=== PATIENT | female | born 1990 | race Caucasian/White ===

== ENCOUNTER 2018-12-12 10:47 | Emergency (ER) | payer OTHER ==
--- NOTE | 2018-12-12 12:30 | ED Physician Documentation ---
History of Present Illness - Stated complaint Stated Complaint: FACIAL PX POST SURGERY - History obtained from History obtained from: Patient - History of Present Illness Timing: Other (Had sinus surgery 9 days ago. She was generally improving and everything went fine at her follow-up appointment except for slightly increased pain over what was expected but over the last 3 days pain especially in the right maxillary sinus is worsened with bloody and foul-smelling output there. No fevers.) Review of Systems Nose: reports: Congestion, Epistaxis, Sinus pressure / pain. denies: Rhinorrhea / runny nose Throat: denies: Sore throat PD PAST MEDICAL HISTORY - Present Medications Home Medications: Ambulatory Orders Medication Instructions Recorded Confirmed Amox/Clav 875/125 [Augmentin] 1 each PO Q12H #20 tablet 12/12/18 Norethindrone AC-Eth Estradiol 1 each PO 12/12/18 [Microgestin 21 1-20 Tablet] Oxycodone HCl/Acetaminophen 1 - 2 each PO Q6H PRN #20 tablet 12/12/18 [Percocet 5-325 mg Tablet] Zolpidem [Ambien] 5 mg PO HS 12/12/18 12/12/18 - Allergies Allergies/Adverse Reactions: Allergies Allergy/AdvReac Type Severity Reaction Status Date / Time No Known Drug Allergies Allergy Verified 12/12/18 11:02 PD ED PE NORMAL - Vitals Vital signs reviewed: Yes - General General: Alert and oriented X 3, No acute distress - HEENT HEENT: PERRL, EOMI, Pharynx benign, Other (There is no overt facial swelling. Extraocular movements are intact. There is tenderness over the right maxillary sinus. Near the ostial meatus behind the turbinates there is a clear clot that looks like it is probably blocking up the meatus.) - Neuro Neuro: Alert and oriented X 3, Normal speech Results - Vitals Vitals: Vital Signs - 24 hr 12/12/18 10:59 Temperature 36.2 C L Heart Rate 80 Respiratory 16 Rate Blood Pressure 128/72 O2 Saturation 100 Oxygen O2 Source Room air Departure - Departure Disposition: 01 Home, Self Care Clinical Impression: Sinusitis Qualifiers: Sinusitis location: maxillary Chronicity: acute Recurrence: recurrent Qualified Code(s): J01.01 - Acute recurrent maxillary sinusitis Condition: Good Record reviewed to determine appropriate education?: Yes Instructions: ED Sinusitis Abx Tx Prescriptions: Amox/Clav 875/125 [Augmentin] 1 each PO Q12H #20 tablet Oxycodone HCl/Acetaminophen [Percocet 5-325 mg Tablet] 1 - 2 each PO Q6H PRN #20 tablet PRN Reason: pain Comments: Follow-up with your ENT as scheduled, sooner if not improving. Return if worse or if new symptoms develop.
[2018-12-12 12:48] VITALS: BP 113/72
== END 2018-12-12 12:54 | disposition home or self-care (01) ==
LOC: ED 10:47
DX: J01.01 Acute recurrent maxillary sinusitis (principal); Z98.890 Other specified postprocedural states
CPT/HCPCS: 99283

== ENCOUNTER 2019-04-05 09:45 | Emergency (ER) | payer OTHER ==
--- NOTE | 2019-04-05 10:03 | ED Physician Documentation ---
PD HPI HEAD INJURY - Stated complaint Stated Complaint: HEAD INJ - Chief complaint Chief Complaint: Trauma Hd/Nk - History obtained from History obtained from: Patient - History of Present Illness Mechanism of head injury: Fell (She tripped over a dog and fell and struck her forehead on the counter. She was dazed momentarily. She has some pain and swelling in the forehead area. She did not feel too badly yesterday and was able to go to work after that. Today however she is feeling increased headache in the frontal aspect and feels somewhat nauseous and off balance with walking. She denies any visual changes. She has not had any troubles communicating or speaking.) Timing - onset: Yesterday Location of injury: Front (forehead) Quality of pain: Pain, Aching, Dull Associated symptoms: AMS (feeling lightheaded and off balance and forgetful today.), Nausea / vomiting (nausea but no vomiting). No: LOC Symptoms worsen with: Palpation Contributing factors: No: Anticoagulated Similar symptoms before: Has not had sx before Recently seen: Not recently seen Review of Systems Constitutional: denies: Fever Eyes: denies: Loss of vision, Decreased vision, Photophobia Nose: denies: Rhinorrhea / runny nose, Congestion, Sinus pressure / pain Throat: denies: Sore throat Respiratory: denies: Cough GI: reports: Nausea. denies: Vomiting Skin: reports: Abrasion (s). denies: Laceration (s) Neurologic: reports: Headache, Head injury. 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 HEENT: Tonsil/Adenoidectomy - Present Medications Home Medications: Ambulatory Orders Medication Instructions Recorded Confirmed Amox/Clav 875/125 [Augmentin] 1 each PO Q12H #20 tablet 12/12/18 Norethindrone AC-Eth Estradiol 1 each PO 12/12/18 [Microgestin 21 1-20 Tablet] Oxycodone HCl/Acetaminophen 1 - 2 each PO Q6H PRN #20 tablet 12/12/18 [Percocet 5-325 mg Tablet] Zolpidem [Ambien] 5 mg PO HS 12/12/18 12/12/18 Naproxen 500 mg PO BID #20 tablet 04/05/19 Ondansetron Odt [Zofran] 4 mg TL Q6H PRN #10 tablet 04/05/19 - Allergies Allergies/Adverse Reactions: Allergies Allergy/AdvReac Type Severity Reaction Status Date / Time No Known Drug Allergies Allergy Verified 04/05/19 09:52 - Social History Does the pt smoke?: No Smoking Status: Never smoker Does the pt drink ETOH?: Yes Does the pt have substance abuse?: No - Immunizations Immunizations are current?: Yes - POLST Patient has POLST: No PD ED PE NORMAL - Vitals Vital signs reviewed: Yes - General General: Alert and oriented X 3, Well developed/nourished - HEENT HEENT: PERRL, EOMI, Other (fundi normal. Forehead with local swelling and mild superficial abrasion. ) - Neck Neck: Supple, no meningeal sign, No bony TTP, No adenopathy - Derm Derm: Normal color, Warm and dry - Extremities Extremities: No tenderness to palpate, Normal ROM s pain - Neuro Neuro: Alert and oriented X 3, truck jumper 2-12 intact, No motor deficit, No sensory deficit, Normal speech, Other Eye Opening: Spontaneous Motor: Obeys Commands Verbal: Oriented GCS Score: 15 Results - Vitals Vitals: Vital Signs - 24 hr 04/05/19 04/05/19 09:49 11:15 Temperature 36.8 C 36.9 C Heart Rate 96 69 Respiratory 14 12 Rate Blood Pressure 121/90 H 109/65 O2 Saturation 100 99 Oxygen O2 Source Room air - Rads (name of study) head CT Radiology: Prelim report reviewed (normal; no acute process/injury), EMP read contemporaneously, See rad report PD MEDICAL DECISION MAKING - ED course Complexity details: considered differential (seems like mild concussive sy mptoms. There may be some element of sinus pressure/injury too. CT normal. ), d/w patient Departure - Departure Disposition: 01 Home, Self Care Clinical Impression: Contusion of forehead Qualifiers: Encounter type: initial encounter Qualified Code(s): S00.83XA - Contusion of other part of head, initial encounter Mild concussion Qualifiers: Encounter type: initial encounter Loss of consciousness presence/duration: without LOC Qualified Code(s): S06.0X0A - Concussion without loss of consciousness, initial encounter Condition: Stable Record reviewed to determine appropriate education?: Yes Instructions: ED Concussion Follow-Up: KIMBERLY KOHLI DO [Primary Care Provider] - Prescriptions: Naproxen 500 mg PO BID #20 tablet Ondansetron Odt [Zofran] 4 mg TL Q6H PRN #10 tablet PRN Reason: Nausea / Vomiting Comments: Your head CT is normal. There is no signs of bleeding swelling or acute abnormality. You may be having symptoms mostly from pressure in the sinus and frontal area. However your symptoms do suggest mild concussive brain symptoms. Rest and take it easy for a day or 2. Use some anti-inflammatories such as naproxen or ibuprofen. Add Tylenol if needed. Ondansetron if needed for nausea. Recheck if not improved over the next couple of days. Forms: Activity restrictions Discharge Date/Time: 04/05/19 11:19
[2019-04-05] MEDS ORDERED: ONDANSETRON ODT 4 MG TABLET TL STA (10:18)
[2019-04-05] MEDS ORDERED: ACETAMINOPHEN 325 MG TABLET PO STA (10:19)
[2019-04-05] MEDS ORDERED: NAPROXEN 250 MG TABLET PO STA (10:19)
--- NOTE | 2019-04-05 11:00 | CT Report ---
Reason: struck head yesterday; frontal WOODS, nausea Procedure Date: 04/05/2019 Accession Number: [id number] / [id number] Procedure: CT - HEAD WO CPT Code: FULL RESULT: EXAM: CT HEAD EXAM DATE: 04/05/2019 10:41 AM. CLINICAL HISTORY: Struck head yesterday; frontal headache, nausea. COMPARISON: None. TECHNIQUE: Multiaxial CT images were obtained from the foramen magnum to the vertex. Reformats: Sagittal and coronal. IV contrast: None. In accordance with CT protocol optimization, one or more of the following dose reduction techniques were utilized for this exam: automated exposure control, adjustment of mA and/or KV based on patient size, or use of iterative reconstructive technique. FINDINGS: Parenchyma: No intraparenchymal hemorrhage. No evidence of mass, midline shift. Arzola-white differentiation is distinct. Extraaxial Spaces: Basal cisterns are preserved. No subdural or epidural collections identified. Ventricles: Normal in size and position. Sinuses and Orbits: Imaged paranasal sinuses, orbits, and mastoids show no significant abnormality. Bones: No evidence of fracture or calvarial defect. Other: None. IMPRESSION: No acute intracranial abnormality is detected. RADIA
[2019-04-05] MEDS ORDERED: CHERRY SYRUP 10 ML UDC PO ONE (11:08)
[2019-04-05] MEDS ORDERED: DEXAMETHASONE 10 MG/ML VIAL PO STA (11:08)
[2019-04-05 11:16] VITALS: BP 109/65
== END 2019-04-05 11:19 | disposition home or self-care (01) ==
LOC: ED 09:45
DX: S06.0X0A Concussion without loss of consciousness, initial encounter (principal); S00.83XA Contusion of other part of head, initial encounter; W01.198A Fall on same level from slipping, tripping and stumbling with subsequent striking against other object, initial encounter
CPT/HCPCS: 70450; 99283; A9270; Q0162

== ENCOUNTER 2019-06-14 22:23 | Emergency (ER) | payer OTHER ==
[2019-06-14] MEDS ORDERED: KETOROLAC 60 MG/2 ML VIAL IM STA (22:59)
[2019-06-14] MEDS ORDERED: predniSONE 20 MG TABLET PO STA (23:00)
--- NOTE | 2019-06-14 23:00 | ED Physician Documentation ---
History of Present Illness - Stated complaint Stated Complaint: NECK/BACK PX - Chief complaint Chief Complaint: General - History obtained from History obtained from: Patient - History of Present Illness Timing: Other (4 months) Pain level max: 6 Pain level now: 5 - Additonal information Additional information: 29-year-old female with neck and back pain for the past 4 months. No injury. 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 Saw her PCP and was started on Motrin and Flexeril. States she occasionally has shooting pains to the right arm and hand. Occasional numbness and tingling in the hand as well. She states that she is slated to begin physical therapy. Nothing makes it better or worse. 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 HEENT: Tonsil/Adenoidectomy - Present Medications Home Medications: Ambulatory Orders Medication Instructions Recorded Confirmed Amox/Clav 875/125 [Augmentin] 1 each PO Q12H #20 tablet 12/12/18 Norethindrone AC-Eth Estradiol 1 each PO 12/12/18 [Microgestin 21 1-20 Tablet] Oxycodone HCl/Acetaminophen 1 - 2 each PO Q6H PRN #20 tablet 12/12/18 [Percocet 5-325 mg Tablet] Zolpidem [Ambien] 5 mg PO HS 12/12/18 12/12/18 Naproxen 500 mg PO BID #20 tablet 04/05/19 Ondansetron Odt [Zofran] 4 mg TL Q6H PRN #10 tablet 04/05/19 Gabapentin 300 mg PO DAILY #14 capsule 06/14/19 predniSONE [Deltasone] 10 mg PO [id number] #42 tab 06/14/19 - Allergies Allergies/Adverse Reactions: Allergies Allergy/AdvReac Type Severity Reaction Status Date / Time No Known Drug Allergies Allergy Verified 06/14/19 22:33 - Social History Does the pt smoke?: No Smoking Status: Never smoker Does the pt drink ETOH?: Yes Does the pt have substance abuse?: No - Immunizations Immunizations are current?: Yes - POLST Patient has POLST: No PD ED PE NORMAL - Vitals Vital signs reviewed: Yes - General General: Alert and oriented X 3, No acute distress, Well developed/nourished - HEENT HEENT: PERRL, Moist mucous membranes - Neck Neck: Supple, no meningeal sign, No bony TTP (No midline tenderness palpation. No step-off or deformity.) - Cardiac Cardiac: RRR, Strong equal pulses - Respiratory Respiratory: No respiratory distress, Clear bilaterally - Abdomen Abdomen: Soft, Non tender, Non distended - Back Back: No spinal TTP (No midline tenderness to palpation. No step-off or deformity. No spasm.) - Derm Derm: Warm and dry - Extremities Extremities: Normal ROM s pain - Neuro Neuro: Alert and oriented X 3, clammer 2-12 intact, No motor deficit, No sensory deficit, Normal speech, Other (Normal bilateral lower extremity patellar and ankle jerk reflexes. Normal great toe extension bilaterally. no saddle anesthesia) - Psych Psych: Normal mood, Normal affect Results - Vitals Vitals: Vital Signs - 24 hr 06/14/19 06/14/19 22:30 23:32 Temperature 36.8 C Heart Rate 86 74 Respiratory 17 18 Rate Blood Pressure 121/69 115/63 O2 Saturation 98 100 Oxygen O2 Source Room air PD MEDICAL DECISION MAKING - ED course Complexity details: considered differential (No cauda equina, no spinal epidural abscess, no fracture, no aortic dissection or evidence of aneursym rupture), d/w patient ED course: 29-year-old female presents to the emergency department with what appears to be cervical radiculopathy. No indication for imaging at this time. Will trial on a steroid taper and gabapentin. We will follow-up with her doctor for further care. Given Toradol here. Patient counseled regarding signs and symptoms for which I believe and urgent re-evaluation would be necessary. Patient with good understanding of and agreement to plan and is comfortable going home at this time This document was made in part using voice recognition software. While efforts are made to proofread this document, sound alike and grammatical errors may occur. Departure - Departure Disposition: 01 Home, Self Care Clinical Impression: Cervical radiculopathy Condition: Good Instructions: ED Cervical Radiculopathy Follow-Up: KIMBERLY KOHLI DO [Primary Care Provider] - Within 1 week Prescriptions: Gabapentin 300 mg PO DAILY #14 capsule predniSONE [Deltasone] 10 mg PO [id number] #42 tab Comments: We will start you on a low-dose of gabapentin. This will likely need to be increased by your doctor. It may make you drowsy, I recommend taking it before bed. Return if you worsen
[2019-06-14 23:33] VITALS: BP 115/63
== END 2019-06-14 23:37 | disposition home or self-care (01) ==
LOC: ED 22:23
DX: M54.12 Radiculopathy, cervical region (principal)
CPT/HCPCS: 96372; 99283; 99284; J7512

== ENCOUNTER 2019-10-03 18:28 | Emergency (ER) | payer OTHER ==
[2019-10-03 18:33] VITALS: BP 119/68
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
== END 2019-10-03 19:47 | disposition home or self-care (01) ==
LOC: ED 18:28
DX: M62.830 Muscle spasm of back (principal)
CPT/HCPCS: 99282; 99284

== ENCOUNTER 2020-03-12 10:32 | Emergency (ER) | payer OTHER ==
[2020-03-12 10:44] VITALS: BP 128/82
--- NOTE | 2020-03-12 11:09 | ED Physician Documentation ---
PD HPI UPPER EXT INJURY - Stated complaint Stated Complaint: SHLDR PX,NUMBNESS - Chief complaint Chief Complaint: Ext Problem - History obtained from History obtained from: Patient - History of Present Illness Location: Right, Shoulder Type of injury: Other (over use) Where injury occurred: Home Timing - onset: How many months ago (several) Timing - details: Gradual onset, Still present, Waxing and waning Improved by: Rest, Immobilization Worsened by: Moving, Palpating Associated symptoms: Tingling (to the 4th and 5th digits of the right hand with movement and pain in the right elbow.). No: Weakness, Swelling, Discolored Contributing factors: No: Anticoagulated, Prior ortho surgery, Prosthetic joint, Work related Similar symptoms before: Diagnosis (back spasm) Recently seen: Clinic - Additonal information Additional information: 29-year-old female has some pain in her right shoulder which she relates is being the top of the right scapula medially. She has pain when she moves her arm around and moves her shoulder through a range of motion. She has had this pain off and on for several months and she does do excessive cleaning at home. She has been doing more cleaning than usual recently and her pain is worse than usual. She has gone into see her primary and has scheduled a cervical MRI and an MRI of the shoulder to be done tomorrow. She has intolerable pain today. She has had improvement previously with the use of steroid. She has not injured the shoulder specifically other than overuse. She denies any pain in her wrist or elbow she does have some tingling in her fingers. Review of Systems Constitutional: denies: Fever Eyes: denies: Decreased vision Ears: denies: Ear pain Nose: denies: Rhinorrhea / runny nose, Congestion Throat: denies: Sore throat Cardiac: denies: Chest pain / pressure, Palpitations Respiratory: denies: Dyspnea, Cough GI: denies: Abdominal Pain, Nausea, Vomiting : denies: Dysuria, Frequency Skin: denies: Rash Musculoskeletal: reports: Neck pain, Back pain, Extremity pain. 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: No - Immunizations Immunizations are current?: Yes - POLST Patient has POLST: No PD ED PE NORMAL - Vitals Vital signs reviewed: Yes (hyertensive) - General General: Alert and oriented X 3, No acute distress, Well developed/nourished - HEENT HEENT: Atraumatic, PERRL, EOMI - Neck Neck: Supple, no meningeal sign, No bony TTP - Respiratory Respiratory: No respiratory distress - Back Back: No CVA TTP, No spinal TTP - Derm Derm: Normal color, Warm and dry, No rash - Extremities Extremities: No deformity, No edema, Other (There is tenderness to the right upper rhomboid muscles. There is pain to movement of the arm in a range of motion and this is mostly centered over the same area. She does have some pain over the supraspinatus area as well. The distal neurovascular components are intact and there is full range of motion of the shoulder.) - Neuro Neuro: Alert and oriented X 3, law instructor 2-12 intact, No motor deficit, No sensory deficit, Normal speech Eye Opening: Spontaneous Motor: Obeys Commands Verbal: Oriented GCS Score: 15 - Psych Psych: Normal mood, Normal affect Results - Vitals Vitals: Vital Signs - 24 hr 03/12/20 10:35 Temperature 36.8 C Heart Rate 100 Respiratory 20 Rate Blood Pressure 128/82 H O2 Saturation 100 Oxygen O2 Source Room air PD MEDICAL DECISION MAKING - ED course Complexity details: reviewed old records, reviewed results, re-evaluated patient, considered differential, d/w patient ED course: 29-year-old female who is having pain in the rhomboid area and the right elbow and numbness in the right fourth and fifth digits has been doing excessive cleaning and I believe she has a myofascial strain. We have given her a dose of dexamethasone here in the emergency department and we have placed her on some prednisone for about 5 days we have given her some Toradol here in the emergency department and we are placing her into a sling. I have indicated to the patient that she should reduce the use of her arm from this excessive cleaning for an extended period of time more than 1 or 2 days more like 2 to 3 weeks. She will attempt to do any cleaning she does with the left hand and she will follow-up as she has previously planned. Departure - Departure Disposition: 01 Home, Self Care Clinical Impression: Thoracic myofascial strain Qualifiers: Encounter type: initial encounter Qualified Code(s): S29.019A - Strain of muscle and tendon of unspecified wall of thorax, initial encounter Condition: Stable Instructions: ED Myofascial Pain Syndrome Follow-Up: KIMBERLY KOHLI, [Primary Care Provider] - Prescriptions: predniSONE [Prednisone] 40 mg PO DAILY #10 tablet Comments: Today it appears that the pain you are having in your arm and shoulder are related to excessive use likely from cleaning. My recommendation is to do anything you are doing with your left hand and use your arm in a sling for 2 to 3 weeks. You will not need to begin the prednisone until tomorrow. Follow-up with your studies as planned.
[2020-03-12] MEDS: CHERRY SYRUP 10 ML UDC PO ONE (11:20)
[2020-03-12] MEDS: KETOROLAC 60 MG/2 ML VIAL IM STA (11:21)
[2020-03-12] MEDS: DEXAMETHASONE 10 MG/ML VIAL PO STA (11:21)
== END 2020-03-12 11:29 | disposition home or self-care (01) ==
LOC: ED 10:32
DX: S29.019A Strain of muscle and tendon of unspecified wall of thorax, initial encounter (principal); X50.3XXA Overexertion from repetitive movements, initial encounter; Y93.E9 Activity, other interior property and clothing maintenance; Y92.009 Unspecified place in unspecified non-institutional (private) residence as the place of occurrence of the external cause
CPT/HCPCS: 96372; 99283; 99284

== ENCOUNTER 2020-03-13 12:30 | Outpatient (CLI) | payer OTHER ==
--- NOTE | 2020-03-13 23:04 | MRI Report ---
Reason: CERVICALGIA Procedure Date: 03/13/2020 Accession Number: [id number] / [id number] Procedure: MRI - Cervical Spine W/O CPT Code: Final Report FULL RESULT: EXAM: MRI CERVICAL SPINE WITHOUT CONTRAST. EXAM DATE: 03/13/2020 01:38 PM. CLINICAL HISTORY: Right-sided scapular pain moves up to the right side of the neck with tingling and numbness of the right arm. COMPARISONS: None. TECHNIQUE: Multiplanar, multisequence T1-weighted and fluid-sensitive sequences of the cervical spine without contrast. Other: None. FINDINGS: Neurologic Structures: The visualized posterior fossa structures are unremarkable. No signal abnormality in the visualized spinal cord. Alignment: Retrolisthesis at C3-C4, C4-C5, and C5-C6 measuring 1 mm. Bone Marrow: No gross fractures or bone lesions. No marrow edema. Interspace Levels/Facets: C1-C2: Unremarkable. C2-C3: Unremarkable. C3-C4: A tiny central protrusion is present without spinal canal or foraminal stenosis. C4-C5: A tiny central protrusion is present without spinal canal or foraminal stenosis. C5-C6: A tiny central protrusion is present without spinal canal or foraminal stenosis. C6-C7: Unremarkable. C7-T1: Unremarkable. Musculature: Normal. No edema or fatty atrophy. Other: The paravertebral and prevertebral soft tissues are normal. IMPRESSION: 1. Normal cervical spinal cord signal intensity. 2. No abnormal bone marrow edema. 3. Very mild degenerative changes are noted in the mid cervical spine without spinal canal or foraminal stenosis. [facility]
--- NOTE | 2020-03-14 10:04 | MRI Report ---
Reason: RIGHT SHOULDER PAIN Procedure Date: 03/13/2020 Accession Number: [id number] / [id number] Procedure: MRI - Shoulder RT W/O CPT Code: Final Report FULL RESULT: EXAM: RIGHT SHOULDER MRI WITHOUT CONTRAST EXAM DATE: 03/13/2020 02:15 PM. CLINICAL HISTORY: Right shoulder pain. COMPARISON: None. TECHNIQUE: Multiplanar, multisequence T1-weighted and fluid-sensitive sequences of the shoulder without contrast. Other: None. FINDINGS: Acromioclavicular Region: The acromion is type II. AC joint shows mild synovial hypertrophic change. The coracoacromial and coracoclavicular ligaments are intact. No subacromial/subdeltoid bursal fluid. Glenohumeral Region: No subluxation. No effusion or loose bodies. The articular cartilage is unremarkable. The glenohumeral ligaments and joint capsule are unremarkable. Bone Marrow: No fracture, marrow edema or bone lesions. Labrum: The labrum is unremarkable on this nonarthrographic study. Musculature/Rotator Cuff: Supraspinatus portion of the rotator cuff is thickened and shows mild increased T2 signal. Lesser amount of similar change seen in the subscapularis. Infraspinatus and teres minor are normal. No proximal muscle bundle edema or fatty atrophy. Biceps Tendon: The long head of the biceps tendon and biceps evon are intact. Other: The subcutaneous tissues are unremarkable. IMPRESSION: 1. Type II unipartite undersurface osseous acromion shape. The AC joint shows mild synovial hypertrophic change. 3. Supraspinatus portion of the rotator cuff shows moderate tendinopathy. No tears. 3. Labrum, capsular structures and long head of the biceps appear unremarkable. Normal bones. [facility]
== END 2020-03-13 12:31 | disposition home or self-care (01) ==
LOC: DI 12:30
PROVIDERS: ATTEND Family Medicine
DX: M50.21 Other cervical disc displacement, high cervical region (principal); M43.12 Spondylolisthesis, cervical region; M47.812 Spondylosis without myelopathy or radiculopathy, cervical region; M19.011 Primary osteoarthritis, right shoulder; M75.91 Shoulder lesion, unspecified, right shoulder
CPT/HCPCS: 72141